=== PATIENT | male | born 1970 | race Two or more races ===

== ENCOUNTER 2023-09-07 19:30 | Emergency (ER) | payer SELFPAY ==
[~2023-09-07] VITALS: Ht 172.7 cm; Wt 185.0 kg
[2023-09-07] MEDS ORDERED: CYCL-837 PO (23:26)
[2023-09-07] MEDS ORDERED: ACE3T PO (23:26)
[2023-09-07] MEDS: HYDROcodone-ACET 5/325MG TAB PO ONE (23:58)
[2023-09-07] MEDS: ONDANSETRON ODT 4 MG TAB PO ONE (23:58)
[2023-09-08 00:23] VITALS: BP 107/72; PULSE 79; RESP 20; TEMP 98.5; O2SAT 98
== END 2023-09-08 02:00 | disposition home or self-care (01) ==
LOC: EDBD 19:30 → ER 19:30
DX: S39.012A Strain of muscle, fascia and tendon of lower back, initial encounter (principal); S93.492A Sprain of other ligament of left ankle, initial encounter; S06.891A Other specified intracranial injury with loss of consciousness of 30 minutes or less, initial encounter; Z79.899 Other long term (current) drug therapy; V87.8XXA Person injured in other specified noncollision transport accidents involving motor vehicle (traffic), initial encounter; Y93.89 Activity, other specified; Y92.89 Other specified places as the place of occurrence of the external cause; Y99.8 Other external cause status
CPT/HCPCS: 70450; 72070; 72100; 73610; 99284; Q0162